=== PATIENT | female | born 1990 | race Caucasian/White ===

== ENCOUNTER 2020-07-28 13:00 | Observation (INO) | payer OTHER ==
[2020-07-28] MEDS ORDERED: SODIUM CHLORIDE 0.9% 1,000 ML IV ONE ×2 (13:17→17:26)
--- NOTE | 2020-07-28 13:21 | ED ---
General Adult HPI - General Stated complaint: Confusion Time Seen by Provider: 07/28/20 13:00 Source: patient, RN notes reviewed, old records reviewed - History of Present Illness Initial comments: This is a 30-year-old female who presents emergency department via EMS she states last night she rolled out of bed and states she didn't have any real injury except maybe a little lower back soreness. Patient states she did not hit her head or neck. Patient comes in today because she states she feels like she is in a dream state patient is alert and oriented 4 per EMS and she appears to be alert and oriented 4 when I'm interviewing her. Patient states she just doesn't feel like herself and she denies any fever chills. Patient denies any drug use. Patient denies alcohol use. Patient denies any chest pain difficulty breathing shortest breath per patient denies abdominal pain patient denies nausea vomiting diarrhea. - Related Data Home Medications Medication Instructions Recorded Confirmed Acetaminophen with Codeine 1 tab PO BID PRN 07/28/20 07/28/20 [Tylenol w/Codeine #4 Tablet] Dextroamphetamine/Amphetamine 30 mg PO DAILY 07/28/20 07/28/20 [Adderall Xr] Dextroamphetamine/Amphetamine 10 mg PO BID PRN 07/28/20 07/28/20 [Adderall] Diazepam [Valium] 10 mg PO QID PRN 07/28/20 07/28/20 Ferrous Sulfate [Feosol] 325 mg PO DAILY 07/28/20 07/28/20 Fluticasone Nasal [place] [Flonase 1 - 2 spr EA NOSTRIL BID PRN 07/28/20 07/28/20 Nasal [place]] Iron Infusion 1 dose IV Q7D 07/28/20 07/28/20 Methocarbamol [Robaxin-750] 750 mg PO Q6H PRN 07/28/20 07/28/20 OXcarbazepine [Trileptal] 300 mg PO BID 07/28/20 07/28/20 Omeprazole 40 mg PO DAILY 07/28/20 07/28/20 Promethazine [Phenergan] 25 mg PO Q6H PRN 07/28/20 07/28/20 Sertraline [Zoloft] 200 mg PO DAILY 07/28/20 07/28/20 Previous Rx's Medication Instructions Recorded traMADol HCl [Ultram] 100 mg PO TID #30 tab 07/30/14 Allergies Allergy/AdvReac Type Severity Reaction Status Date / Time cefprozil [From Cefzil] Allergy Rash/Hives Verified 07/28/20 14:10 sulfamethoxazole Allergy Swelling Verified 07/28/20 14:10 [From Bactrim] trimethoprim [From Bactrim] Allergy Swelling Verified 07/28/20 14:10 transparent dressing AdvReac Rash/Hives Verified 07/28/20 14:10 [Transparent Dressing] Review of Systems ROS Statement: Those systems with pertinent positive or pertinent negative responses have been documented in the HPI. ROS Other: All systems not noted in ROS Statement are negative. Past Medical History Past Medical History: Fibromyalgia, Hypertension, Osteoarthritis (OA) (Fibromyalgia Mnire's disease -induced hypertension resolved) Additional Past Medical History / Comment(s): pt states she has high blood pressure. History of Any Multi-Drug Resistant Organisms: None Reported Past Surgical History: Section Past Anesthesia/Blood Transfusion Reactions: No Reported Reaction Past Psychological History: Anxiety, Depression, Panic Disorder Past Alcohol Use History: None Reported Past Drug Use History: None Reported - Past Family History Mother Family Medical History: No Reported History General Exam - General Exam Comments Initial Comments: GENERAL: Patient is well-developed and well-nourished. Patient is nontoxic and well- hydrated and is in no acute distress. ENT: Neck is soft and supple. No significant lymphadenopathy is noted. Oropharynx is clear. Moist mucous membranes. Neck has full range of motion without eliciting any pain. EYES: The sclera were anicteric and conjunctiva were pink and moist. Extraocular movements were intact and pupils were equal round and reactive to light. Eyelids were unremarkable. PULMONARY: Unlabored respirations. Good breath sounds bilaterally. No audible rales rhonchi or wheezing was noted. CARDIOVASCULAR: There is a regular rate and rhythm without any murmurs gallops or rubs. ABDOMEN: Soft and nontender with normal bowel sounds. SKIN: Skin is clear with no lesions or rashes and otherwise unremarkable. NEUROLOGIC: Patient is alert and oriented x3. Cranial nerves II through XII are grossly intact. Motor and sensory are also intact. Normal speech, volume and content. Symmetrical smile. MUSCULOSKELETAL: Normal extremities with adequate strength and full range of motion. 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 LYMPHATICS: No significant lymphadenopathy is noted PSYCHIATRIC: Normal psychiatric evaluation. Course Vital Signs 07/28/20 07/28/20 07/28/20 13:20 14:30 15:00 Temperature 98.2 F Pulse Rate 67 70 77 Respiratory 18 12 18 Rate Blood Pressure 122/83 135/98 127/93 O2 Sat by Pulse 98 98 98 Oximetry Medical Decision Making - Medical Decision Making EKG shows normal sinus rhythm at 66 bpm [place] interval is 162 QRS is 86 QT interval is 432 QTC is 452. Patient's EKG shows no ST segment elevation or depression. I will back in the room and the patient was not responding to any physical stimulus I did a sternal rub on the patient I told the nurse immediately to check for drugs into a cast while she was unresponsive. I will back and when the patient had awoken and she was upset that I accused of taking drugs and then she threatened to maliha me and wanted to be fired and also of other unreasonable requests. CT of the brain shows no acute abnormality. I indicated the patient that she needed to be admitted she wasn't sure she wanted to be admitted want to talk with her mother. Patient woke up from episode and indicated that she could no longer feel any of her extremities. - Lab Data Result diagrams: 07/28/20 13:29 07/28/20 13:29 Lab Results 07/28/20 07/28/20 07/28/20 Range/Units 13:29 13:29 13:29 WBC 13.6 H (3.8-10.6) k/uL RBC 4.13 (3.80-5.40) m/uL Hgb 11.9 (11.4-16.0) gm/dL Hct 34.4 (34.0-46.0) % MCV 83.2 (80.0-100.0) fL MCH 28.9 (25.0-35.0) pg MCHC 34.7 (31.0-37.0) g/dL RDW 15.2 (11.5-15.5) % Plt Count 300 (150-450) k/uL MPV 6.4 Neutrophils % 81 % Lymphocytes % 10 % Monocytes % 5 % Eosinophils % 3 % Basophils % 0 % Neutrophils # 11.0 H (1.3-7.7) k/uL Lymphocytes # 1.4 (1.0-4.8) k/uL Monocytes # 0.7 (0-1.0) k/uL Eosinophils # 0.4 (0-0.7) k/uL Basophils # 0.0 (0-0.2) k/uL Sodium 142 (137-145) mmol/L Potassium 4.0 (3.5-5.1) mmol/L Chloride 108 H (98-107) mmol/L Carbon Dioxide 28 (22-30) mmol/L Anion Gap 6 mmol/L BUN 8 (7-17) mg/dL Creatinine 0.60 (0.52-1.04) mg/dL Est GFR (CKD-EPI)AfAm >90 (>60 ml/min/1.73 sqM) Est GFR (CKD-EPI)NonAf >90 (>60 ml/min/1.73 sqM) Glucose 100 H (74-99) mg/dL Calcium 9.2 (8.4-10.2) mg/dL Total Bilirubin 0.1 L (0.2-1.3) mg/dL AST 23 (14-36) U/L ALT 19 (4-34) U/L Alkaline Phosphatase 100 (38-126) U/L Troponin I (0.000-0.034) ng/mL Total Protein 6.7 (6.3-8.2) g/dL Albumin 4.1 (3.5-5.0) g/dL Urine Color Light Yellow Urine Appearance Clear (Clear) Urine pH 5.5 (5.0-8.0) Ur Specific [place] 1.014 (1.001-1.035) Urine Protein Negative (Negative) Urine Glucose (UA) Negative (Negative) Urine Ketones Negative (Negative) Urine Blood Negative (Negative) Urine Nitrite Negative (Negative) Urine Bilirubin Negative (Negative) Urine Urobilinogen <2.0 (<2.0) mg/dL Ur Leukocyte Esterase Negative (Negative) Urine Opiates Screen Not Detected (NotDetected) Ur Oxycodone Screen Not Detected (NotDetected) Urine Methadone Screen Not Detected (NotDetected) Ur Propoxyphene Screen Not Detected (NotDetected) Ur Barbiturates Screen Not Detected (NotDetected) U Tricyclic Antidepress Not Detected (NotDetected) Ur Phencyclidine Scrn Not Detected (NotDetected) Ur Amphetamines Screen Detected H (NotDetected) U Methamphetamines Scrn Not Detected (NotDetected) U Benzodiazepines Scrn Detected H (NotDetected) Urine Cocaine Screen Not Detected (NotDetected) U Marijuana (THC) Screen Detected H (NotDetected) 07/28/20 Range/Units 13:29 WBC (3.8-10.6) k/uL RBC (3.80-5.40) m/uL Hgb (11.4-16.0) gm/dL Hct (34.0-46.0) % MCV (80.0-100.0) fL MCH (25.0-35.0) pg MCHC (31.0-37.0) g/dL RDW (11.5-15.5) % Plt Count (150-450) k/uL MPV Neutrophils % % Lymphocytes % % Monocytes % % Eosinophils % % Basophils % % Neutrophils # (1.3-7.7) k/uL Lymphocytes # (1.0-4.8) k/uL Monocytes # (0-1.0) k/uL Eosinophils # (0-0.7) k/uL Basophils # (0-0.2) k/uL Sodium (137-145) mmol/L Potassium (3.5-5.1) mmol/L Chloride (98-107) mmol/L Carbon Dioxide (22-30) mmol/L Anion Gap mmol/L BUN (7-17) mg/dL Creatinine (0.52-1.04) mg/dL Est GFR (CKD-EPI)AfAm (>60 ml/min/1.73 sqM) Est GFR (CKD-EPI)NonAf (>60 ml/min/1.73 sqM) Glucose (74-99) mg/dL Calcium (8.4-10.2) mg/dL Total Bilirubin (0.2-1.3) mg/dL AST (14-36) U/L ALT (4-34) U/L Alkaline Phosphatase (38-126) U/L Troponin I <0.012 (0.000-0.034) ng/mL Total Protein (6.3-8.2) g/dL Albumin (3.5-5.0) g/dL Urine Color Urine Appearance (Clear) Urine pH (5.0-8.0) Ur Specific [place] (1.001-1.035) Urine Protein (Negative) Urine Glucose (UA) (Negative) Urine Ketones (Negative) Urine Blood (Negative) Urine Nitrite (Negative) Urine Bilirubin (Negative) Urine Urobilinogen (<2.0) mg/dL Ur Leukocyte Esterase (Negative) Urine Opiates Screen (NotDetected) Ur Oxycodone Screen (NotDetected) Urine Methadone Screen (NotDetected) Ur Propoxyphene Screen (NotDetected) Ur Barbiturates Screen (NotDetected) U Tricyclic Antidepress (NotDetected) Ur Phencyclidine Scrn (NotDetected) Ur Amphetamines Screen (NotDetected) U Methamphetamines Scrn (NotDetected) U Benzodiazepines Scrn (NotDetected) Urine Cocaine Screen (NotDetected) U Marijuana (THC) Screen (NotDetected) Disposition Clinical Impression: Altered mental status, Cataplexy Disposition: ADMITTED IP TO THIS [facility] Referrals: Carina Davison MD [Primary Care Provider] - 1-2 days Time of Disposition: 17:26
[2020-07-28 13:47] LABS: Basophils % (A) 0 %; Eosinophils # (A) 0.4 k/uL (0-0.7); Eosinophils % (A) 3 %; HCT 34.4 % (34.0-46.0); HGB 11.9 gm/dL (11.4-16.0); Lymphocytes # (A) 1.4 k/uL (1.0-4.8); Lymphocytes % (A) 10 %; MCH 28.9 pg (25.0-35.0); MCHC 34.7 g/dL (31.0-37.0); MCV 83.2 fL (80.0-100.0); Mean Platelet Volume 6.4; Monocytes # (A) 0.7 k/uL (0-1.0); Monocytes % (A) 5 %; Neutrophils % (A) 81 %; Platelet Count 300 k/uL (150-450); RBC 4.13 m/uL (3.80-5.40); RDW 15.2 % (11.5-15.5); WBC 13.6 k/uL (3.8-10.6)
[2020-07-28 14:03] LABS: ALT 19 U/L (4-34); AST 23 U/L (14-36); African American GFR (CKD) >90 (>60 ml/min/1.73 sqM); Albumin 4.1 g/dL (3.5-5.0); Alkaline Phosphatase 100 U/L (38-126); Anion Gap 6 mmol/L; Blood Urea Nitrogen 8 mg/dL (7-17); Calcium 9.2 mg/dL (8.4-10.2); Carbon Dioxide 28 mmol/L (22-30); Chloride 108 mmol/L (98-107); Glucose 100 mg/dL (74-99); Non-African American GFR(CKD) >90 (>60 ml/min/1.73 sqM); Sodium 142 mmol/L (137-145); Total Bilirubin 0.1 mg/dL (0.2-1.3); Total Protein 6.7 g/dL (6.3-8.2)
[2020-07-28 15:24] LABS: Appearance,Urine Clear (Clear); Bilirubin,Urine Negative (Negative); Blood,Urine Negative (Negative); Color,Urine Light Yellow; Glucose,Urine (UA) Negative (Negative); Ketones,Urine Negative (Negative); Leukocyte Esterase,Urine Negative (Negative); Nitrite,Urine Negative (Negative); PH, Urine 5.5 (5.0-8.0); Protein,Urine Negative (Negative); Specific Gravity,Urine 1.014 (1.001-1.035); Urobilinogen,Urine <2.0 mg/dL (<2.0)
[2020-07-28 15:36] LABS: Amphetamine Screen,Urine Detected (NotDetected); Barbiturate Screen,Urine Not Detected (NotDetected); Benzodiazepines Screen,Urine Detected (NotDetected); Cocaine Screen,Urine Not Detected (NotDetected); Methadone Screen, Urine Not Detected (NotDetected); Opiate Screen,Urine Not Detected (NotDetected); Oxycodone Screen, Urine Not Detected (NotDetected); Phencyclidine Screen,Urine Not Detected (NotDetected); Tricyclic Antidepressant,Urine Not Detected (NotDetected); Urn Cannabinoid Scrn Detected (NotDetected)
--- NOTE | 2020-07-28 15:53 | CT ---
EXAMINATION TYPE: CT brain wo con DATE OF EXAM: 07/28/2020 COMPARISON: MR brain 04/17/2010 HISTORY: Altered mental status. CT DLP: 1099.4 mGycm. Automated Exposure Control for Dose Reduction was Utilized. TECHNIQUE: CT scan of the head is performed without contrast. FINDINGS: There is no acute intracranial hemorrhage, mass effect, or midline shift identified. The ventricles and sulci are within normal limits in size. Periventricular white matter possibly shows some patchy low-attenuation. The globes are intact and the visualized sinuses are clear. IMPRESSION: No acute intracranial hemorrhage, mass effect, or midline shift is seen. There may be so me underlying demyelination, brain MRI may be of benefit.
[2020-07-28 20:36] VITALS: BP 132/97; PULSE 74; RESP 20; TEMP 98.3
--- NOTE | 2020-07-28 20:58 | P.PN ---
Progress Note - Text Progress Note Date: 07/28/20 The patient was initially admitted to the [facility] service for altered mental status and cataplexy. The patient was seen at the bedside in the emergency room. At the beginning of the interview, the patient and her mother at the bedside asked if Adderall was available. Discussed with the inpatient pharmacy who noted that Adderall was in fact not on formulary and could not be obtained and that the patient would have to bring in her own. The patient and her mother subsequently noted that they wished to leave AGAINST MEDICAL ADVICE and go to a different facility. A full history could not be obtained nor could the patient be examined. Discussed the risks of leaving AGAINST MEDICAL ADVICE. The patient signed the paperwork and left the emergency room.
== END 2020-07-28 20:26 | disposition left against medical advice (07) ==
LOC: EC 13:00 → 6NMEDSUR 18:12
PROVIDERS: ADMIT Internal Medicine; ATTEND Internal Medicine
DX: G47.411 Narcolepsy with cataplexy (principal); W06.XXXA Fall from bed, initial encounter; Z53.29 Procedure and treatment not carried out because of patient's decision for other reasons; Z20.822 Contact with and (suspected) exposure to COVID-19; I10 Essential (primary) hypertension; M79.7 Fibromyalgia; F41.0 Panic disorder [episodic paroxysmal anxiety]; Z88.1 Allergy status to other antibiotic agents; Z88.2 Allergy status to sulfonamides; Z91.048 Other nonmedicinal substance allergy status; Z79.899 Other long term (current) drug therapy
CPT/HCPCS: 96360; 96361; 99285; 36415; 93005; 80053; 84484; 85025; 81003; 80306; 87635; 70450; G0378